=== PATIENT | female | born 1965 | race American Indian/Alaskan Native ===

== ENCOUNTER 2017-05-04 20:43 | Emergency (ER) | payer MEDICARE, MEDICAID ==
[2017-05-04] MEDS ORDERED: TYLENOL ONE (20:59)
[2017-05-04] MEDS ORDERED: TYLENOL PO ONE (21:03)
--- NOTE | 2017-05-04 21:36 | XRay Report ---
FINAL REPORT EXAM: XR FOOT 3 RT HISTORY: right toe swelling and pain TECHNIQUE: Left foot three views PRIORS: None. FINDINGS: There is hallux valgus deformity at the 1st metatarsophalangeal joint. Few small cystic changes are noted in the head of the 1st metatarsal. Remaining joint spaces are unremarkable. No acute fracture or dislocation is identified. IMPRESSION: Hallux valgus
--- NOTE | 2017-05-05 00:21 | Emergency Department Report ---
HPI - General Chief Complaint: Extremity Injury, Lower Time Seen by Provider: 05/05/17 00:12 - HPI HPI: Pt is a 52-year-old female presents to ED complaining of left second toe pain and swelling the pass 3 days. Patient states 2 days ago the boil on her toe popped and she had some yelowish discharge from the toe. Patient states showed that she is to have in some pain and redness until. She denies trauma or fall to the feet She denies fevers/chills/nausea/vomiting or abdominal pain or any other problems ED Past Medical Hx - Past Medical History Hx Hypertension: Yes Hx Arthritis: Yes Hx Asthma: Yes Additional medical history: Gout, Left knee pain - Surgical History Past Surgical History?: Yes Additional Surgical History: hernia repaired - Social History Smoking Status: Former Smoker Substance Use Type: None - Medications Home Medications: Home Medications Medication Instructions Recorded Confirmed Last Taken Type amLODIPine [Norvasc] 10 mg PO DAILY 05/04/17 05/04/17 05/04/17 History Cephalexin [Keflex] 500 mg PO BID #10 capsule 05/05/17 Unknown Rx Ibuprofen [Motrin] 600 mg PO Q8H PRN #30 tablet 05/05/17 Unknown Rx ED Review of Systems ROS: Stated complaint: INSECT BITE TO FOOT Other details as noted in HPI Constitutional: denies: chills, fever Eyes: denies: eye pain, eye discharge, vision change ENT: denies: ear pain, throat pain Respiratory: denies: cough, shortness of breath, wheezing Cardiovascular: denies: chest pain, palpitations Endocrine: no symptoms reported Gastrointestinal: denies: abdominal pain, nausea, diarrhea Genitourinary: denies: urgency, dysuria, discharge Musculoskeletal: denies: back pain, joint swelling, arthralgia Skin: denies: rash, lesions Neurological: denies: headache, weakness, paresthesias Psychiatric: denies: anxiety, depression Hematological/Lymphatic: denies: easy bleeding, easy bruising Physical Exam - Physical Exam Vital Signs: Vital Signs 05/04/17 20:52 Temperature 98.1 F Pulse Rate 87 Respiratory 18 Rate Blood Pressure 159/95 O2 Sat by Pulse 100 Oximetry Physical Exam: GENERAL: Alert and oriented x3, no apparent distress, Normal Gait, atraumatic. HEAD: Head is normocephalic and a-traumatic. LUNGS: Symetrical with respiration, No wheezing, no rales or crackles, CTAB. HEART: S1, S2 present, regular rate and rhythm without murmur, no rubs, no gallops. EXTREMITIES/MUSCULOSKELETAL: No cyanosis, clubbing, rash, lesions or edema. Full ROM bilaterally. Toe joints are intact ankle joints are intact. Left foot secondary toe mildly erythematous, tender to palpation, and swollen. No active drainage. SKIN: Warm and dry, No lesions, No ulceration or induration present. ED Course Vital Signs 05/04/17 20:52 Temperature 98.1 F Pulse Rate 87 Respiratory 18 Rate Blood Pressure 159/95 O2 Sat by Pulse 100 Oximetry ED Medical Decision Making - Radiology Data Radiology results: report reviewed, image reviewed FINAL REPORT EXAM: XR FOOT 3 RT HISTORY: right toe swelling and pain TECHNIQUE: Left foot three views PRIORS: None. FINDINGS: There is hallux valgus deformity at the 1st metatarsophalangeal joint. Few small cystic changes are noted in the head of the 1st metatarsal. Remaining joint spaces are unremarkable. No acute fracture or dislocation is identified. IMPRESSION: Hallux valgus Transcribed By: NISA Dictated By: MALCOLM THORNE MD Electronically Authenticated By: MALCOLM THORNE MD Signed Date/Time: 05/04/172130 - Medical Decision Making 52-year-old female presents with cellulitis of the second toe of the left foot ED course: Patient was given Tylenol with codeine in the ED and one dose of Keflex. Discussed the patient continually use of antibiotics at home and pain medication. Discussed follow-up with primary care physician. Discussed with the patient to monitor her foot and make sure swelling is going down of the toe. Discussed heat therapy as needed. Patient positioned appropriately, 5cc lidocaine with/without epinephrine was used as a local anesthetic. #11 blade scalpal used for single incision. . Copius drainage of pus. Wound dressed with sterile 4x4 guaze and paper tape. Pt tolerated procedure well. Critical care attestation.: If time is entered above; I have spent that time in minutes in the direct care of this critically ill patient, excluding procedure time. ED Disposition Clinical Impression: Cellulitis of toe of left foot Disposition: DC-01 TO HOME OR SELFCARE Is pt being admited?: No Does the pt Need Aspirin: No Condition: Stable Instructions: Cellulitis (ED), Abscess (ED) Prescriptions: Cephalexin [Keflex] 500 mg PO BID #10 capsule Ibuprofen [Motrin] 600 mg PO Q8H PRN #30 tablet PRN Reason: Pain Referrals: PRIMARY CARE, [Primary Care Provider] - 3-5 Days [facility] [Outside] - 3-5 Days [facility] [Outside] - 3-5 Days Forms: Work/School Release Form Time of Disposition: 01:10
[2017-05-05] MEDS ORDERED: KEFLEX PO ONE (01:07)
[2017-05-05] MEDS ORDERED: TYLENOL #3 PO ONE (01:07)
[2017-05-05] MEDS ORDERED: XYLOCAINE 1% 20 mL INFILTRATI NR (01:15)
[2017-05-05 02:38] VITALS: BP 174/110
== END 2017-05-05 02:37 | disposition home or self-care (01) ==
LOC: ED 20:43
DX: L03.032 Cellulitis of left toe (principal); M19.90 Unspecified osteoarthritis, unspecified site; J45.909 Unspecified asthma, uncomplicated; M10.9 Gout, unspecified; Z87.891 Personal history of nicotine dependence